=== PATIENT | male | born 1980 | race African-American/Black ===

== ENCOUNTER 2017-08-23 12:40 | Emergency (ER) | payer SELFPAY ==
[~2017-08-23] VITALS: Ht 180.3 cm; Wt 73.5 kg
[2017-08-23] MEDS ORDERED: PREZISTA600 MG ORAL (13:20)
[2017-08-23] MEDS ORDERED: TRUVADA 200 MG1 EAC1 ORAL (13:20)
[2017-08-23] MEDS ORDERED: NORVIR100 MG ORAL (13:20)
[2017-08-23] MEDS ORDERED: Methocarbamol 750mg tab ORAL ONE (13:45)
[2017-08-23] MEDS ORDERED: Ketorolac 60mg Inj IM ONE (13:45)
[2017-08-23 13:56] VITALS: BP 118/79
[2017-08-23] MEDS ORDERED: ROBAXIN-750750 MG PO (13:58)
[2017-08-23] MEDS ORDERED: IBUPROFEN600 MG ORAL (13:58)
[2017-08-23 14:01] VITALS: BP 118/79
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
== END 2017-08-23 14:01 | disposition home or self-care (01) ==
LOC: EMR 13:50
DX: S39.012A Strain of muscle, fascia and tendon of lower back, initial encounter (principal); V43.62XA Car passenger injured in collision with other type car in traffic accident, initial encounter; Y92.414 Local residential or business street as the place of occurrence of the external cause
CPT/HCPCS: 96372; 99284